=== PATIENT | male | born 1970 | race Caucasian/White ===

== ENCOUNTER 2018-05-25 00:16 | Outpatient (CLI) | payer BC, SELFPAY ==
--- NOTE | 2018-05-25 11:30 | ETT_ITS ---
*[facility]* *[facility]* [address] [place] [address] Stress Electrocardiography David protocol Date of study: 05/25/2018 *PATIENT PRESENTATION* Height: 185.4cm (73in) Blood Pressure: Weight: 118.2kg (260lb) BSA: 2.5m^2 Ordering physician: Regino West Impressions: Exertional chest tightness without ischemic EKG changes. Hypertension. Summary: 1. Stress ECG conclusions: The stress ECG is negative. 2. Stress: There is resting hypertension with a hypertensive response to stress. Stress-induced typical chest pain which resolved spontaneously. Exercise capacity is average for age. Indication: R06.02. History: Risk factors: REASON FOR TESTING: PT REPORTS SOB ON EXERTION, OCCAS. A PAIN OR TWO . THIS IS REPORTED A SQUEEZING TIGHTNESS WHEN TRYING TO TAKE A DEEP BREATH. THS HAS BEEN ONGOING FOR A YEAR OR TWO. PMH: KIDNEY STONE, HYPERTENSION, DEPRESSION FAMILY HX: MOTHER- CAD, CA WITH MANY STENTS, SISTER- COARCTATION OF AORTA, FATHER- CA SMOKING: NEVER SMOKER. EXCERCISE: STORE ADMINISTRATOR, WALKS DAILY. NO CHOLESTEROL DATA AVAILABLE, PREVIOUSLY DONE AT [facility]. Family history of coronary artery disease. ALLERGIES: PENICILLIN MEDICATIONS: PAXIL 40 MG DAILY, AMLODIPINE 5 MG DAILY. ( PT UNSURE OF ACTUAL DOSE) Protocol: David protocol. Baseline ECG: NO EKG FOR COMPARISON AVAILABLE. TODAY'S EKG- SINUS RHYTHM, HR 71. Stress protocol: + +---+ +---+ !Stage !HR !BP (mmHg) !Sat! + +---+ +---+ !Baseline supine !71 !148/98 (115) !96%! + +---+ +---+ !Baseline standing !81 !140/100 (113)!---! + +---+ +---+ !Stage I; 1.7mph, 10degrees; 3 min !107!150/90 (110) !96%! + +---+ +---+ !Stage II; 2.5mph, 12degrees; 3 min !121!165/90 (115) !---! + +---+ +---+ !Stage III; 3.4mph, 14degrees; 3 min!141!174/88 (117) !95%! + +---+ +---+ !Recovery; 1 min !136!190/90 (123) !---! + +---+ +---+ !Recovery; 3 min !104!204/96 (132) !---! + +---+ +---+ !Recovery; 6 min !94 !170/94 (119) !---! + +---+ +---+ !Recovery; 9 min !92 !140/90 (107) !---! + +---+ +---+ * Stress results: There is resting hypertension with a hypertensive response to stress. The rate-pressure product for the peak heart rate and blood pressure was 45079th Hg/min. Stress-induced typical chest pain which resolved spontaneously. Exercise capacity is average for age. Stress ECG: EXCERCISE TESTING ENDED IN 9 MINS, 34 SECS, DUE TO FATIGUE AND DYSPNEA. MAX HR WAS 152, 87% OF TARGET. HYPERTENSIVE BLOOD PRESSURE RESPONSE. METS:11.08 ECTOPY: NONE SEEN. ANGINA: PATIENT REPORTED 1/10 CHEST TIGHTNESS IN STAGE 2, 2/10 LEFT CHEST PRESSURE IN STAGE 3. BY 2 MINS OF RECOVERY, THE PRESSURE HAD DIMINISHED SLIGHTLY, AND BY 5 MINS OF RECOVERY WAS 0/10. ISCHEMIA: NO ISCHEMIC CHANGES NOTED. FUNCTIONAL CAPACITY: AVERAGE CAPACITY. The stress ECG is negative. Study data: Brittany Robertson MD supervised and was readily available during the procedure. This study was interpreted by [facility]. Study status: Routine. Consent: The risks, benefits, and alternatives to the procedure were explained to the patient and informed consent was obtained. Procedure: Initial setup. A baseline ECG was recorded. Surface ECG leads and manual cuff blood pressure measurements were monitored. Heart sounds: Normal. Lung sounds: Normal. Treadmill exercise testing was performed using the David protocol. Study completion: The patient tolerated the procedure well and was discharged from the lab. Discharge: The patient left the laboratory in stable condition. Birthdate: Patient birthdate: 1970. Sex: Gender: male. Study date: Study date: 05/25/2018. Study time: 11:30 AM. Signature Documentation: The Stress ECG portion of this study was interpreted by Brittany Robertson MD. Electronically signed by Brittany Robertson 05/25/2018 13:01
== END 2018-05-25 00:17 ==
PROVIDERS: PCP Family Medicine; Visit Provider Family Medicine
DX: R07.89 Other chest pain (principal); R06.02 Shortness of breath; I10 Essential (primary) hypertension
CPT/HCPCS: 93017

== ENCOUNTER 2018-07-26 14:55 | Outpatient (REF) | payer BC, SELFPAY ==
[2018-07-26 19:19] LABS: Anion Gap 10.3 mmol/L (3-11); BUN 12 mg/dL (7-18); CO2 25.7 mmol/L (21.0-32.0); CREATININE 0.95 mg/dL (0.70-1.30); Chloride 103 mmol/L (98-107); Glucose 105 mg/dL (70-100); Magnesium 2.1 mg/dL (1.8-2.4); Sodium 139 mmol/L (136-145); TSH (W/Ref FT4) 1.95 uIU/mL (0.358-3.74)
== END 2018-07-26 15:15 ==
LOC: NCHCN 14:55
PROVIDERS: PCP Family Medicine; Visit Provider Family Medicine
DX: H81.10 Benign paroxysmal vertigo, unspecified ear (principal); R53.83 Other fatigue; I10 Essential (primary) hypertension
CPT/HCPCS: 80048; 83735; 84443

== ENCOUNTER 2019-05-23 11:59 | Emergency (ER) | payer BC, SELFPAY ==
[2019-05-23 12:06] VITALS: BP 153/102; PULSE 79; RESP 20; TEMP 36.8; O2SAT 95
--- NOTE | 2019-05-23 12:14 | ED.GENADUL_ITS ---
Discharge Plan Disposition Patient Disposition: HOME Condition: Improving Discharge Details Chief Complaint: Orthopedic Clinical Impression: Gout attack Primary Care Provider: Regino West ED Provider: Bunny White Home Meds and New Rx's Prescriptions: New prednisone 20 mg tablet 40 mg PO DAILY 6 Days Qty: 12 RF: 0 Continued paroxetine HCl 20 MG tablet 20 mg PO DAILY RF: 0 Discharge Instructions Instructions: Gout (ED) Additional Instructions: Please follow-up with Dr West if not improving in 5 to 7 days time. Return for increasing pain or any acute concerns. Please take prednisone as prescribed. Tylenol as needed for discomfort. I apply ice to area to reduce discomfort. Medical Decision Making 48-year-old male with left great toe pain over days time, questions whether he may have injured it playing softball but it took 2 days for the pain to begin. On exam he appears to have podagra. Referred for x-ray and laboratory testing. Diagnostic studies are notable for unremarkable x-ray. His laboratories reveal normal CBC, elevated uric acid at 7.5 and elevated C-reactive protein 0.5. Consistent with acute gout, will treat with a brief burst of prednisone. Discussed with him expected course of resolution and need for follow-up if not improving. Stable and appropriate for discharge Lab Data Lab results reviewed: Yes I reviewed the patient's lab results. Laboratory Results - last 24 hr 05/23/19 05/23/19 12:31 12:31 WBC 5.46 RBC 4.59 Hgb 14.4 Hct 42.1 MCV 91.7 MCH 31.4 MCHC 34.2 RDW 13.5 Plt Count 151 MPV 8.9 Immature Gran % 0.4 Neutrophils % 56.9 Lymphocytes % 31.7 Monocytes % 8.8 Eosinophils % 1.8 Basophils % 0.4 Absolute Neutrophils 3.11 Absolute Lymphocytes 1.73 Absolute Monocytes 0.48 Absolute Eosinophils 0.10 Absolute Basophils 0.02 Sodium 141 Potassium 4.0 Chloride 106 Carbon Dioxide 23.9 Anion Gap 11.1 H BUN 12 Creatinine 1.12 Estimated GFR/1.73 m2 >= 60.00 Glucose 99 Uric Acid 7.5 H Calcium 8.7 C-Reactive Protein 0.55 H HPI General Mode of arrival: ambulatory . Date/Time Provider Initiated Documentation: 05/23/19 12:09 . Limitations to Documentation: no limitations . Information obtained by: patient . History of Present Illness 48 year old M presents to the emergency department with the chief complaint of Right foot pain, most@ great toe, described as moderate, Quality is described as dull and constant, and is localized to the left and lower extremity. Patient reports no radiation. Patient started experiencing this day(s) and it has been constant. Rest improves symptom(s), Movement worsens symptoms . Patient notes no other symptoms.; denies fever/chills. Patient did receive the following treatments prior to arrival, none Related Data Home Medications Medication Instructions Recorded Confirmed paroxetine HCl 20 mg PO DAILY 12/08/17 05/23/19 prednisone 40 mg PO DAILY 6 Days #12 tab 05/23/19 Previous Rx's Medication Instructions Recorded prednisone 40 mg PO DAILY 6 Days #12 tab 05/23/19 Allergies Allergy/AdvReac Type Severity Reaction Status Date / Time Penicillins Allergy Unverified 05/23/19 12:08 General Stated Complaint: Orthopedic UGO: 3 Review of Systems Review of Systems Question subtle injury on Monday playing softball. No other injury. No numbness or tingling. No fever chills. Sick systems reviewed and otherwise negative [facility] Social History Do you feel safe in your relationship?: Yes Exam Narrative Exam Narrative: GEN: awake, alert, oriented 3. Pleasant, well groomed, interactive. HEAD: Normocephalic, atraumatic ENT: Mucous membranes moist, oropharynx unremarkable, External ear exam unremarkable EXT: Full ROM, no edema, no rash. Left great toe erythematous, warm to the touch, tender to palpation and passive movement. Neuro: Grossly normal neurologic exam, conversant, interactive. Psych: Speech fluent, thoughts congruent, affect normal Course Vital Signs Temperature 36.8 C 05/23/19 12:06 Pulse 79 05/23/19 12:06 Respiratory Rate 20 05/23/19 12:06 Blood Pressure 153/102 H 05/23/19 12:06 Pulse Oximetry 95 05/23/19 12:06 Temperature 36.8 C 05/23/19 12:06 Temperature Source Temporal Artery Scan 05/23/19 12:06 Pulse 79 05/23/19 12:06 Respiratory Rate 20 05/23/19 12:06 Blood Pressure 153/102 H 05/23/19 12:06 Pulse Oximetry 95 05/23/19 12:06 Pain Level 9 05/23/19 12:06
[2019-05-23] MEDS: Acetaminophen 500 MG TAB 1000 MG PO (12:17)
--- NOTE | 2019-05-23 12:37 | NUR.NOTE ---
Nursing Note: pt to x-ray
[2019-05-23 12:40] LABS: Abs Immature Grans 0.02 k/cumm (0.0-0.09); Absolute Basophil Count 0.02 k/cumm (0.0-0.2); Absolute Lymphocyte Count 1.73 k/cumm (1.2-3.4); Absolute Monocyte Count 0.48 k/cumm (0.11-0.7); Absolute Neutrophil Count 3.11 k/cumm (1.2-6.7); Basophils % 0.4; Eosinophils % 1.8; HCT 42.1 % (40.0-50.0); HGB 14.4 g/dL (13.5-17.5); Immature Grans % 0.4; Lymphocytes % 31.7; Mean Corp. HGB Concentration 34.2 g/dL (32.0-36.0); Mean Corpuscular Hemoglobin 31.4 pg (27.0-33.0); Mean Corpuscular Volume 91.7 fL (80-95); Mean Platelet Volume 8.9 fL (8.0-11.0); Monocytes % 8.8; Neutrophils % 56.9; Platelet Count 151 x1000/uL (130-400); RBC 4.59 m/cumm (4.50-6.00); RBC Distribution Width 13.5 % (11.8-14.1); White Blood Cell Count 5.46 k/cumm (4.4-10.8)
--- NOTE | 2019-05-23 12:45 | DI.RAD_ITS ---
SYMPTOM/DIAGNOSIS: GREAT TOE PAIN, ? PODAGRA RIGHT GREAT TOE: Three views were obtained. There are mild degenerative changes of the IP joints of the toes. Small accessory ossicles are noted adjacent to plantar surface of the IP joint of the great toe. No other significant bony abnormality is seen.
[2019-05-23 12:55] LABS: Anion Gap 11.1 mmol/L (3-11); BUN 12 mg/dL (7-18); C-Reactive Protein 0.55 mg/dL (0.0-0.3); CO2 23.9 mmol/L (21.0-32.0); CREATININE 1.12 mg/dL (0.70-1.30); Calcium 8.7 mg/dL (8.5-10.1); Chloride 106 mmol/L (98-107); Glucose 99 mg/dL (70-100); Sodium 141 mmol/L (136-145); Uric Acid 7.5 mg/dL (3.5-7.2)
[2019-05-23 13:13] VITALS: BP 153/102; PULSE 79; RESP 20; TEMP 36.8; O2SAT 95
== END 2019-05-23 13:21 | disposition home or self-care (01) ==
PROVIDERS: Emergency Provider Emergency Medicine; PCP Family Medicine
DX: M79.674 Pain in right toe(s) (principal); M10.9 Gout, unspecified
CPT/HCPCS: 36415; 80048; 99284; 73660; 84550; 85025; 86140; 99283

== ENCOUNTER 2019-11-06 13:39 | Outpatient (REF) | payer BC, SELFPAY ==
[2019-11-06 19:25] LABS: Anion Gap 12.6 mmol/L (3-11); BUN 17 mg/dL (7-18); CO2 23.4 mmol/L (21.0-32.0); CREATININE 1.12 mg/dL (0.70-1.30); Calcium 8.8 mg/dL (8.5-10.1); Calculated LDL 109 mg/dL; Chloride 105 mmol/L (98-107); Cholesterol 182 mg/dL (<200); Glucose 93 mg/dL (74-106); HDL Cholesterol 38 mg/dL (40-60); Potassium 4.4 mmol/L (3.5-5.1); Sodium 141 mmol/L (136-145); Triglyceride 178 mg/dL (<150)
[2019-11-08 11:34] LABS: Hepatitis C Ab w Rflx HCV PCR Negative (Negative)
== END 2019-11-06 13:59 ==
LOC: NCHCN 13:39
PROVIDERS: PCP Family Medicine; Visit Provider Family Medicine
DX: R73.01 Impaired fasting glucose (principal); Z13.220 Encounter for screening for lipoid disorders; Z11.59 Encounter for screening for other viral diseases
CPT/HCPCS: 80048; 80061; 86803

== ENCOUNTER 2020-04-03 08:20 | Outpatient (CLI) | payer BC, SELFPAY ==
[2020-04-05 10:39] LABS: COVID-19 RT-PCR Result NEGATIVE (Negative)
== END 2020-04-03 08:40 ==
PROVIDERS: PCP Family Medicine; Visit Provider Physician Assistant Medical
DX: Z20.828 Contact with and (suspected) exposure to other viral communicable diseases (principal)
CPT/HCPCS: U0003

== ENCOUNTER 2020-05-15 09:22 | Outpatient (CLI) | payer BC, SELFPAY ==
[2020-05-18 17:42] LABS: SARS-CoV-2 RNA Undetected (Undetected); SARS-CoV-2 Specimen Source Nasopharynx
== END 2020-05-15 09:42 ==
PROVIDERS: PCP Family Medicine; Visit Provider Physician Assistant Medical
DX: Z11.59 Encounter for screening for other viral diseases (principal)
CPT/HCPCS: U0003

== ENCOUNTER 2022-02-11 20:06 | Outpatient (REF) | payer MEDICAID, SELFPAY ==
[2022-02-14 09:43] LABS: PSA, Diagnostic 1.3 ng/mL (<=3.5)
== END 2022-02-11 20:07 | disposition home or self-care (01) ==
LOC: LBN 20:06
PROVIDERS: PCP Family Medicine; Visit Provider Urology
DX: R31.9 Hematuria, unspecified (principal); R36.1 Hematospermia; Z80.42 Family history of malignant neoplasm of prostate
CPT/HCPCS: 84153

== ENCOUNTER 2023-01-31 01:27 | Outpatient (CLI) | payer BC, SELFPAY ==
--- NOTE | 2023-01-31 | DI.MRI_ITS ---
Exam(s) MR LUMBAR SPINE WO EXAM: MR LUMBAR SPINE WO CLINICAL HISTORY: LUMBAR RADICULOPATHY LLE,LT FOOT DROP,HYPOREFLEXIC LT KNEE JERK,M21.372,. TECHNIQUE: Multiplanar multisequence MRI of the Lumbar spine was performed. COMPARISON: CT RENAL COLIC WO CONTRAST from 12/08/2017 FINDINGS: Bones: The last intervertebral disc space is designated the L5/S1 level for the numbering purpose of this examination. The vertebral body heights are well maintained. Alignment is satisfactory. Degene rative endplate signal changes are present. There are most marked at L5-S1. Cord: The conus tip ends at the T12 level. It is of normal size and signal intensity. T12-L1: No disc herniations or bulges are present. No central spinal canal or neural foraminal stenos is. L1-2: No disc herniations or bulges are present. No central spinal canal or neural foraminal stenosis . L2-3: Degenerative changes of the facets are seen. There is a mild diffuse disc bulge. There is mil d narrowing of the neural foramen bilaterally. L3-4: There is a diffuse disc bulge and degenerative changes of the facets. There is mild narrowing of the central spinal canal. No significant neural foraminal stenosis is present. L4-5: There is a diffuse disc bulge. There are hypertrophic changes of the facets. There is mild na rrowing of the central spinal canal. There is moderate right and marked left neural foraminal stenos is. No central spinal canal or neural foraminal stenosis. L5-S1: There is disc material which appears to extend into the left neural foramen. There are degene rative changes of the facets bilaterally. No significant central spinal canal or right neural forami nal stenosis is seen. There is moderately severe left neural foraminal stenosis. Soft tissues: The visualized SI joints and sacrum are well maintained. The paraspinal soft tissues ar e unremarkable. IMPRESSION: 1. Degenerative changes at L4-L5 resulting in mild central spinal canal stenosis and moderate right a nd marked left neural foraminal stenosis. 2. There appears to be disc material which extends into the left neural foramen on L5-S1 causing mode rately severe left neural foraminal stenosis. 3. Multilevel degenerative changes in the lumbar spine. DATA REPOSITORY:
== END 2023-01-31 01:47 ==
PROVIDERS: PCP Family Medicine; Visit Provider Nurse Practitioner Family
DX: M21.372 Foot drop, left foot (principal); M48.00 Spinal stenosis, site unspecified
CPT/HCPCS: 72148

== ENCOUNTER 2024-04-03 11:46 | Outpatient (CLI) | payer BC, SELFPAY ==
[2024-04-03 11:43] LABS: Abs Immature Grans 0.01 10^3/uL (0.0-0.06); Absolute Basophil Count 0.04 10^3/uL (0.0-0.2); Absolute Eosinophil Count 0.19 10^3/uL (0.0-0.7); Absolute Monocyte Count 0.41 10^3/uL (0.1-0.8); Absolute Neutrophil Count 2.12 10^3/uL (1.2-6.7); Basophils % 0.9 %; Eosinophils % 4.3 %; HCT 38.6 % (40.0-50.0); HGB 13.7 g/dL (13.5-17.5); Immature Grans % 0.2 %; MCHC 35.5 % (32.0-36.0); MCV 93 fL (80-95); Monocytes % 9.2 %; Neutrophils % 47.4 %; Platelet Count 101 10^3/uL (130-400); RBC 4.15 10^6/uL (4.36-5.78); RDW 13.3 % (11.8-14.1); RDW-SD 45.5 fL; WBC 4.47 10^3/uL (4.4-10.8)
[2024-04-03 12:43] LABS: Hemoglobin A1C 5.4 % (<5.7)
[2024-04-03 13:12] LABS: ALT 55 U/L (16-63); AST 43 U/L (15-37); Albumin 3.8 g/dL (3.4-5.0); Alkaline Phosphatase 96 U/L (46-116); Anion Gap 10.8 mmol/L (3-11); BUN 11 mg/dL (7-18); Bilirubin, Total 1.8 mg/dL (0.2-1.0); CO2 24.2 mmol/L (21.0-32.0); CREATININE 1.1 mg/dL (0.70-1.30); Calculated LDL 51 mg/dL (<100); Chloride 106 mmol/L (98-107); Cholesterol 124 mg/dL (<200); Estimated GFR 80.77 (mL/min/1.73m2); Glucose 110 mg/dL (74-106); HDL Cholesterol 64 mg/dL (40-60); Potassium 3.8 mmol/L (3.5-5.1); Sodium 141 mmol/L (136-145); TSH (W/Ref FT4) 2.34 uIU/mL (0.36-3.74); Total Protein 7.5 g/dL (6.4-8.2); Triglyceride 47 mg/dL (<150); Vitamin B12 488 pg/mL (193-986); Vitamin D 25 Total 25.5 ng/mL (30-100)
[2024-04-03 22:27] LABS: PSA, Screening 1.5 ng/mL (<=3.5)
== END 2024-04-03 11:47 | disposition home or self-care (01) ==
LOC: LBO 11:47
PROVIDERS: PCP Family Medicine; Visit Provider Nurse Practitioner Family
DX: I10 Essential (primary) hypertension (principal); Z00.00 Encounter for general adult medical examination without abnormal findings; E78.5 Hyperlipidemia, unspecified; D51.3 Other dietary vitamin B12 deficiency anemia; E55.9 Vitamin D deficiency, unspecified; Z12.5 Encounter for screening for malignant neoplasm of prostate
CPT/HCPCS: 36415; 80053; 80061; 82306; 84153; 82607; 83036; 84443; 85025

== ENCOUNTER 2024-05-07 10:48 | Day surgery (SDC) | payer BC, SELFPAY ==
--- NOTE | 2024-05-06 21:27 | PDOC.DSDIS_ITS ---
Date of service: 05/07/24 Time of Service: 15:00 Discharge Plan Disposition Patient Disposition: Home Condition: Good Discharge Details Reason For Visit: colon scope Attending Provider: Stephanie Mccollum Primary Care Provider: Claire Lauren Home Meds and New Rx's Prescriptions: Continued ketorolac 10 mg tablet 10 mg PO TID PRN (Reason: pain) Qty: 15 0RF lisinopril 20 mg tablet 20 mg PO DAILY triamcinolone acetonide 0.05 % ointment 1 applic topical BID Rx Instructions: abdomen and leg Discontinued bisacodyl [Dulcolax (bisacodyl)] 5 mg tablet,delayed release (DR/EC) 5 mg PO ONCE Qty: 4 0RF Rx Instructions: Take per colonoscopy instructions provided by ordering providers office polyethylene glycol 3350 17 gram/dose powder 17 g PO ONCE Qty: 238 0RF Rx Instructions: Take per colonoscopy instructions provided by ordering providers office Discharge Instructions Additional Instructions: DSU Colonoscopy Post- Op Instructions Instructions for Everyone who is given Anesthesia: For your safety, please do the following for the next twenty-four (24) hours: *Do Not operate a motor vehicle (car, truck, motorcycle, etc.) *Do Not drink alcoholic beverages or use any recreational drugs for the first 24 hours or while taking pain medications. The medications in your body may have a reaction that can be dangerous. *Do Not make any important decisions or sign any important papers. Findings: Rectal fissure- see handout Internal Diverticula- ses handout Multiple polyps Follow up: My office will send you a letter in 2 to 3 weeks time with the results of the biopsy and when we want you to repeat the colonoscopy, most likely in 3-5yrs time. -I also ordered an ultrasound of the abdomen. The hospital will call you to schedule the test. 1. No lifting over 20 pounds or strenuous activity for the first 24 hours after your procedure. After 24 hours there are no restrictions on your activity but you may feel fatigued for a few days. 2. After you arrive home you may have a light meal and return to your normal diet as you can tolerate it without feeling sick to your stomach. 3. You may have a bloated, gaseous feeling in your belly (abdomen) after a colonoscopy. Passing gas and belching will help. Walking or lying down on your left side with your knees flexed may relieve the discomfort. Call the office at [phone] (Office) or [phone] (Hospital) right away if you notice any of the following: a.Vomiting of blood or ?coffee ground stools?. b.Rectal bleeding 1Tbsp, blood clots or continuous bleeding. c.Severe belly (abdominal) pain. d.A hard distended belly (abdomen) and an inability to pass gas. 4. Please don?t expect to have a normal BM (bowel movement) for 2-3 days after your procedure. 5. If there are questions regarding the findings of your procedure, please contact your doctor 6. If you are unable to contact your doctor with a problem, contact the hospital at [phone]. 7. Continue all your regular medications unless directed otherwise. I understand the above instructions and have no questions. Signature of Patient or Adult Escort Name of Responsible Adult Escort Signature of Nurse Date/Time Stand Alone Forms: Anesthesia Discharge Inst., Colonoscopy Post Instructions, Roman Mclain (DSU) Activity:: see above Diet:: seeabove Discharge Orders Discharge Orders: Discharge Order (Routine); Ordered 05/07/24 Ordered By: Stephanie Mccollum DS: Diagnosis Discharge Diagnosis (1) Diarrhea: Status: Acute Asessment and Plan: The patient is seen and examined after their colonoscopy.? The patient has been able to pass gas.? They are not having abdominal pain.? They have been able to tolerate liquids and a snack.? They do not have any nausea or vomiting.? They are not having any chest pain or shortness of breath.??? They are not having any rectal bleeding. Their vital signs have been stable-see nursing notes. We discussed findings during their colonoscopy, and any biopsies that were d one/polyps that were removed. The patient will be sent a letter with any biopsy results, and when to repeat the colonoscopy.-see discharge instructions. Patient was given explicit instructions to follow-up regarding colonoscopy-refer to discharge instructions.? We reviewed resumption of medications. Patient verbalized understanding and discharged in stable and satisfactory condition- See nursing notes. (2) Marijuana use: (3) Posttraumatic stress disorder: (4) Alcohol use: (5) Essential hypertension: (6) Diverticula of colon: Status: Acute (7) Adenomatous polyps: Status: Acute (8) Chronic rectal fissure: Status: Acute (9) Internal hemorrhoids with complication: Status: Acute
--- NOTE | 2024-05-06 21:28 | W.COLOREPORT ---
Date of service: 05/07/24 Time of Service: 15:00 Colonoscopy Report Date of procedure: 05/07/24 Pre-op diagnosis general: diarrhea Post-op diagnosis procedure note: other (Internal hemorrhoids/anal fissure/diverticula/colon polyps) Surgeon: Stephanie Mccollum Anesthesia Type: General:No Airway Pathology: other Complications: None Disposition: same day Prep: Miralax/Dulcolax Retraction Time: 17 Procedure Description: After informed consent was obtained, explaining risks of the procedure, including but not limits to: bleeding, infections, complications of anesthesia, perforations (which may require antibiotics and /or surgery and stay in the hospital), and abdominal pain/cramping. The patient was taken to the procedure room and placed in a left decubitous position. Monitors were applied and a time out was done. The patients name, date of , procedure, allergies to medications and metal in their body was reviewed. The patient was then sedated. Once sedated and comfortable a rectal exam was done. External exam was normal. Internal exam revealed a normal sphincter tone and no palpable masses. The prostate []. The previously lubricated Olympus scope was then introduced (see RN notes for scope number) and retrofelexed. Grade 1 internal hemorrhoids x 1 quadrant were identified. He also has a anal fissure in the 6 o'clock position. The scope was then advanced to the cecum without difficulty. The colon is somewhat tortuous. The TI and appendiceal orifice were identified. The scope was then slowly retracted over 17 minutes back into the rectum. Polyps: A flat, .5cm polyp was found on the ileocecal valve.. This was removed with a cold biting forceps. A flat, .5cm polyp was found at 80 cm x2. A flat, .5cm polyp was found at 70cm. This was removed with a cold biting forceps. A flat, .5cm polyp was found at 50cm. This was removed with a cold biting forceps. All of the specimen was retrieved. There is no bleeding noted from the polypectomy site. All of the specimen was retrieved. This will be sent to pathology. There is no bleeding noted from the polypectomy site. . Diverticula: He has a few small scattered diverticula in the sigmoid colon. There is no signs of active bleeding or infection. Biopsies were taken in the cecum 30 cm in the rectum. All specimens are retrieved and no bleeding is noted.. The mucosa is pink and healthy w/ a normal vascular pattern. The scope was removed, and the patient was woken up and taken back to Same day surgery in stable condition. The patient tolerated the procedure well and there were no immediate complications. Follow up: The patient should follow up in 3-5 years, pathology pending, unless they develop changes in bowel habits or other new gastrointestinal complaints. [place] Bowel Prep [place] Bowel Prep Right Colon: 2 Left Colon: 3 Transverse Colon: 2 Total Score: 7
[2024-05-07 11:15] VITALS: BP 136/78; PULSE 75; RESP 16; TEMP 36.2; O2SAT 96
[2024-05-07 11:29] VITALS: BP 136/78; PULSE 75; RESP 16; TEMP 36.2; O2SAT 96
[2024-05-07] MEDS: Lactated Ringers 1,000 ML 80 ML IV (11:41)
--- NOTE | 2024-05-07 12:54 | W.ANESPRE ---
General Info Date of Service Date Performed: 05/07/24 Height: 6 ft 1 in Weight: 117.48 kg Body Mass Index (BMI): 34.2 Surgical Procedure: Operation Date: 05/07/24 12:50 Proposed Procedure Side Surgeon p Colonoscopy Stephanie Mccollum, DO Actual Procedure Side Surgeon p Colonoscopy Not Applicable Stephanie Mccollum, DO Pre-Op Diagnosis Post-Op Diagnosis Diarrhea Meds Allergies and Home Medications Allergies Allergy/AdvReac Type Severity Reaction Status Date / Time Penicillins AdvReac Mild Unknown Unverified 05/07/24 11:11 Home Medication ?Medication ?Instructions ?Recorded ketorolac 10 mg tablet 10 mg PO TID PRN pain #15 tabs 02/11/22 lisinopril 20 mg tablet 20 mg PO DAILY 04/12/24 triamcinolone acetonide 0.05 % 1 applic topical BID 04/12/24 topical ointment Current Visit Medications: Current Medications Generic Name Dose Route Start Last Admin Trade Name Freq PRN Reason Stop Dose Admin Hyoscyamine Sulfate 0.125 mg 05/07/24 01:16 Hyoscyamine 0.125 Mg Sl/Oral/Chew SL 06/06/24 01:15 DIRECTED PRN Ringer's Solution 1,000 mls @ 80 mls/hr 05/07/24 06:00 05/07/24 11:41 IV 06/05/24 23:59 80 mls/hr INFUSION TORI Administration IV Miscellaneous Supplies 1 each 05/07/24 06:00 Iv Access IV 06/05/24 23:59 DIRECTED TORI Ondansetron HCl 4 mg 05/07/24 01:16 Ondansetron 4 Mg/2 Ml Vial IVP 06/06/24 01:15 Q4H PRN PRN Nausea / Vomiting Sodium Chloride 0 ml 05/07/24 06:00 Normal Saline Flush 10 Ml Syr IV 06/05/24 23:59 PRN PRN Sodium Chloride 0 ml 05/07/24 06:00 Normal Saline 10 Ml Vial IJ 06/05/24 23:59 DIRECTED PRN Sterile Water 0 ml 05/07/24 06:00 Water,Injection,Sterile 10 Ml Vial IJ 06/05/24 23:59 DIRECTED PRN PFSH Active Problems Active Problems: Problem Status Onset Code Diarrhea Acute R19.7 Medical History Medical History Essential hypertension Posttraumatic stress disorder Chronic sciatica Alcohol use Marijuana use Maculopapular rash Surgical History Surgical History H/O laminectomy Tobacco Smoking/Tobacco Use Status: Never Alcohol Alcohol Intake: current Alcohol intake frequency: a few times a week Alcohol type: hard liquor Details: Reports 4-5 dane and cokes on nights, not working. Has cut back to this luis Vital Signs and Lab Results Vital Signs Most Recent Vital Signs in EMR: Most Recent Vital Signs Temp Pulse Resp BP Pulse Ox 36.2 C L 75 16 136/78 96 05/07/24 11:29 05/07/24 11:29 05/07/24 11:29 05/07/24 11:29 05/07/24 11:29 Lab Results Blood Type / Crossmatch: No Data to Display Complete Blood Count: No Data to Display Complete Metabolic Panel: No Data to Display Liver Function Panel: No Data to Display Coagulation Panel: No Data to Display Cardiac Panel: No Data to Display Arterial Blood Gas: No Data to Display Venous Blood Gas: No Data to Display Pancreas Panel: No Data to Display Thyroid Panel: No Data to Display Infectious Disease: No Data to Display Blood Cultures: No Data to Display Toxicology Panel: No Data to Display Anesthesia Assessment and Plan Anesthesia History Personal History: No History of Anesthesia Complications Family History: No Family History of Anesthesia Complications Exercise Tolerance Exercise Tolerance: Metabolic Equivalents>4 Pertinent Negatives Pertinent Negatives: No Symptoms of GERD Cardiac & Pulmonary Exam Cardiac Exam: Normal S1/S2 Heart Sounds Pulmonary Exam: Clear Bilateral Breath Sounds Implantable Cardiac Device Does patient have a Pacemaker or an ICD?: No Airway Exam Known Difficult Airway: No Mallampati Class: 2 Mouth Opening: Normal (> 3cm) Thyromental Distance: Greater than 3 cm Neck Range of Motion: Full ROM Neck Circumference: Normal Teeth Condition: Normal Dentition ASA Classification ASA Score: ASA 2 Emergency Case?: No NPO Status NPO Status: NPO Clears >2 hours, Solids >8 hours Anesthesia Plan Resuscitation Status: Full Code Anesthesia Technique: General Anesthesia Airway Planned: Natural Airway Monitors Used: Standard Monitors
[2024-05-07 12:55] VITALS: BMI 34.2
--- NOTE | 2024-05-07 13:40 | BOWEL_PTH ---
PATIENT: Bola Nur LOC: [facility] U#:[id number] AGE/SX: 53/M ROOM: RE05/07/[address]: Stephanie Mccollum : 1970 BED: DIS: 05/07/2024 SPEC #: [id number] RECD: 05/07/24 17:58 STATUS: KEYANNA RE #: [id number] CHEMA: 05/07/24 13:[address]: Stephanie Mccollum DEPT: Surgical Specimen RECD BY: Lori Cervantes ENTERED: 05/07/24 18:01 SP TYPE: Bowel OTHR DR: Claire Lauren Tissues: 1 - BIOPSY BOWEL 2 - BIOPSY BOWEL 3 - BIOPSY BOWEL 4 - BIOPSY BOWEL 5 - BIOPSY BOWEL 6 - BIOPSY BOWEL 7 - BIOPSY BOWEL 8 - BIOPSY BOWEL Procedures: GROSS AND MICRO LEVEL 4 Comments: [id number]
[2024-05-07 14:28] VITALS: BP 97/62; PULSE 69; RESP 16; TEMP 36.3; O2SAT 95
--- NOTE | 2024-05-07 14:42 | W.ANESPOSTOP ---
Postoperative Evaluation Date, Time and Location Date Performed: 05/07/24 Time Performed: 14:42 Patient Location: Day Surgery Unit Vital Signs Most Recent Imported Vital Signs: Most Recent Vital Signs Temp Pulse Resp BP Pulse Ox 36.3 C L 69 16 97/62 L 95 05/07/24 14:28 05/07/24 14:28 05/07/24 14:28 05/07/24 14:28 05/07/24 14:28 Pain Score Most Recent Pain Score: Most Recent Pain Score Pain Level 0 05/07/24 14:28 Assessment Mental Status: Awake (Alert & Oriented to Patient Baseline) Airway and Respiratory Function: Patent airway with normal (patient baseline) respiratory exam Cardiovascular Function: Hemodynamically Stable Hydration Status: Adequately Hydrated Nausea & Vomiting: No Nausea or Vomiting Pain: Pt. Denies Any Pain Peripheral Nerve Block: Patient did not receive a nerve block
[2024-05-07 14:51] VITALS: BP 99/64; PULSE 65; RESP 14; TEMP 36.6; O2SAT 95
== END 2024-05-07 16:06 | disposition home or self-care (01) ==
LOC: SUR 10:48
PROVIDERS: PCP Nurse Practitioner Family; Visit Provider Surgery
PROC: 0DJD8ZZ Inspection of Lower Intestinal Tract, Via Natural or Artificial Opening Endoscopic (ICD-10-PCS; CPT 45378; principal; 2024-05-07 12:45)
DX: R19.7 Diarrhea, unspecified (principal); I10 Essential (primary) hypertension; K57.30 Diverticulosis of large intestine without perforation or abscess without bleeding; K64.8 Other hemorrhoids; K60.2 Anal fissure, unspecified; K63.89 Other specified diseases of intestine; D12.4 Benign neoplasm of descending colon; D12.5 Benign neoplasm of sigmoid colon
CPT/HCPCS: 45380; 88305; J2371; J2704

== ENCOUNTER 2024-12-03 02:25 | Outpatient (CLI) | payer BC, SELFPAY ==
--- NOTE | 2024-12-03 06:15 | DI.MRI_ITS ---
Exam(s) MR LUMBAR SPINE WO EXAM: MR LUMBAR SPINE WO CLINICAL HISTORY: recurrent radiculopathy, hx of laminectomy,m47.27,[id number]. TECHNIQUE: Multiplanar multisequence MRI of the Lumbar spine was performed. COMPARISON: CT RENAL COLIC WO CONTRAST from 12/08/2017 MR MR LUMBAR SPINE WO from 01/31/2023 FINDINGS: Bones: The last intervertebral disc space is designated the L5/S1 level for the numbering purpose of this examination. The vertebral body heights are well maintained. There is very mild anterolisthesi s of L4 on L5. There are degenerative endplate signal changes in the lumbar spine particularly at L2- 3 and L5-S1. Since the prior examination the patient has undergone a left-sided L4 hemilaminectomy. Cord: The conus tip ends at the L1 level. It is of normal size and signal intensity. T12-L1: No disc herniations or bulges are present. No central spinal canal or neural foraminal stenos is. L1-2: No disc herniations or bulges are present. No central spinal canal or neural foraminal stenosis . L2-3: There is a mild diffuse disc bulge. No significant central spinal canal stenosis is seen. The re is mild narrowing of the neural foramen bilaterally. L3-4: There is a mild diffuse disc bulge. Degenerative changes of the facets are seen. There is zain y mild narrowing of the central spinal canal. No significant neural foraminal stenosis is present. L4-5: There is a diffuse disc bulge. There are degenerative changes of the facets. There is mild-to -moderate central spinal canal stenosis. There is extension of disc material into the left neural fo ramen causing moderately severe left neural foraminal stenosis. There is mild right neural foraminal stenosis. L5-S1: There is an eccentric diffuse disc bulge extending into the left neural foramen. No significa nt central spinal canal stenosis is seen. There may be an impression upon the left S1 nerve root.The re is moderate left neural foraminal stenosis. Soft tissues: The visualized SI joints and sacrum are well maintained. The paraspinal soft tissues ar e unremarkable. IMPRESSION: 1. Interval L4 laminectomy. There is interval mild grade 1 anterolisthesis of L4 on L5. 2. Diffuse disc bulge at L4-L5 causing moderate to the mild central spinal canal stenosis and bilater al neural foraminal stenosis, left greater than right. 3. Eccentric disc bulge at L5-S1 extending into the left neural foramen causing moderate left neural foraminal stenosis. DATA REPOSITORY:
== END 2024-12-03 02:45 ==
LOC: DI 02:25
PROVIDERS: PCP Nurse Practitioner Family; Visit Provider Nurse Practitioner Family
DX: M47.27 Other spondylosis with radiculopathy, lumbosacral region (principal); Z98.890 Other specified postprocedural states
CPT/HCPCS: 72148

== ENCOUNTER 2025-01-15 12:10 | Outpatient (CLI) | payer BC, SELFPAY ==
[2025-01-15 12:01] LABS: Abs Immature Grans 0.02 10^3/uL (0.0-0.06); Absolute Basophil Count 0.04 10^3/uL (0.0-0.2); Absolute Lymphocyte Count 1.22 10^3/uL (1.2-3.4); Absolute Monocyte Count 0.51 10^3/uL (0.1-0.8); Absolute Neutrophil Count 2.64 10^3/uL (1.2-6.7); Basophils % 0.8 %; Eosinophils % 6.3 %; HCT 39.2 % (40.0-50.0); HGB 13.5 g/dL (13.5-17.5); Immature Grans % 0.4 %; Lymphocytes % 25.8 %; MCH 31.7 pg (27.0-33.0); MCHC 34.4 % (32.0-36.0); MCV 92 fL (80-95); MPV 9.7 fL (8.0-11.0); Monocytes % 10.8 %; Neutrophils % 55.9 %; Platelet Count 103 10^3/uL (130-400); RBC 4.26 10^6/uL (4.36-5.78); RDW 13.7 % (11.8-14.1); RDW-SD 46.5 fL; WBC 4.73 10^3/uL (4.4-10.8)
[2025-01-15 12:07] LABS: ALT 36 U/L (16-63); AST 32 U/L (15-37); Albumin 3.9 g/dL (3.4-5.0); Alkaline Phosphatase 114 U/L (46-116); Anion Gap 10.2 mmol/L (3-11); BUN 17 mg/dL (7-18); CO2 24.8 mmol/L (21.0-32.0); CREATININE 1.1 mg/dL (0.70-1.30); Calcium 9.2 mg/dL (8.5-10.1); Chloride 107 mmol/L (98-107); Estimated GFR 80.27 (mL/min/1.73m2); Glucose 116 mg/dL (74-106); Potassium 3.7 mmol/L (3.5-5.1); Sodium 142 mmol/L (136-145); Total Protein 7.5 g/dL (6.4-8.2)
[2025-01-15 18:54] LABS: PSA, Screening 1.3 ng/mL (<=3.5)
[2025-01-16 10:02] LABS: HBs Antibody, Quant <3.1 mIU/mL (See Note); Hep B Surface Ab Negative (See Note); Hepatitis B Core Antibody Negative (Negative); Hepatitis B Surface Antigen Negative (Negative)
[2025-01-16 10:04] LABS: HIV-1/2 Ag & Ab Screen Negative (Negative)
[2025-01-16 10:38] LABS: Hepatitis C Ab w Rflx HCV PCR Negative (Negative)
== END 2025-01-15 12:11 | disposition home or self-care (01) ==
LOC: LBO 12:10
PROVIDERS: PCP Nurse Practitioner Family; Visit Provider Nurse Practitioner Family
DX: K76.0 Fatty (change of) liver, not elsewhere classified (principal); Z11.59 Encounter for screening for other viral diseases; Z11.4 Encounter for screening for human immunodeficiency virus [HIV]; Z12.5 Encounter for screening for malignant neoplasm of prostate
CPT/HCPCS: 36415; 80053; 84153; 86704; 86706; 86803; 87340; 87389; 85025

== ENCOUNTER 2025-06-02 11:14 | Outpatient (CLI) | payer BC, SELFPAY ==
--- NOTE | 2025-06-02 11:00 | RT.EKG_ITS ---
APPROVED REPORT Exam: Resting ECG Reason for Exam: pre-op Patient Location: O HR:63 bpm ECG Measurements Heart Rate 63 AXIS DC 190 P 34 QRSd 100 QRS 32 QT 413 T 37 QTc 423 Conclusion Sinus rhythm...normal P axis, V-rate 50- 99 Normal Electrocardiogram
--- NOTE | 2025-06-02 11:45 | RT.EKG_ITS ---
APPROVED REPORT Exam: Resting ECG Reason for Exam: pre op Patient Location: O HR:64 bpm ECG Measurements Heart Rate 64 AXIS ND 193 P 39 QRSd 96 QRS 28 QT 415 T 29 QTc 428 Conclusion Sinus rhythm...normal P axis, V-rate 50- 99 Normal Electrocardiogram
== END 2025-06-02 11:15 | disposition home or self-care (01) ==
PROVIDERS: PCP Nurse Practitioner Family; Visit Provider Nurse Practitioner Family
DX: R06.02 Shortness of breath (principal); Z01.818 Encounter for other preprocedural examination
CPT/HCPCS: 93010

== ENCOUNTER 2025-06-10 09:57 | Outpatient (CLI) | payer BC, SELFPAY ==
[2025-06-10 10:07] LABS: Abs Immature Grans 0.01 10^3/uL (0.0-0.06); HCT 41.4 % (40.0-50.0); HGB 14.3 g/dL (13.5-17.5); Immature Grans % 0.2 %; MCH 31.2 pg (27.0-33.0); MCHC 34.5 % (32.0-36.0); MCV 90 fL (80-95); MPV 9.9 fL (8.0-11.0); Platelet Count 114 10^3/uL (130-400); RBC 4.58 10^6/uL (4.36-5.78); RDW 13.5 % (11.8-14.1); RDW-SD 44.4 fL; WBC 4.93 10^3/uL (4.4-10.8)
[2025-06-10 10:42] LABS: ALT 43 U/L (16-63); AST 31 U/L (15-37); Albumin 4.3 g/dL (3.4-5.0); Alkaline Phosphatase 97 U/L (46-116); Anion Gap 10.4 mmol/L (3-11); BUN 16 mg/dL (7-18); Bilirubin, Total 1.6 mg/dL (0.2-1.0); CO2 23.6 mmol/L (21.0-32.0); Calcium 9.3 mg/dL (8.5-10.1); Chloride 108 mmol/L (98-107); Estimated GFR 90.00 (mL/min/1.73m2); Glucose 121 mg/dL (74-106); Potassium 3.9 mmol/L (3.5-5.1); Sodium 142 mmol/L (136-145); Total Protein 7.7 g/dL (6.4-8.2)
== END 2025-06-10 09:58 | disposition home or self-care (01) ==
LOC: LBO 09:57
PROVIDERS: PCP Nurse Practitioner Family; Visit Provider Nurse Practitioner Family
DX: Z01.818 Encounter for other preprocedural examination (principal)
CPT/HCPCS: 36415; 80053; 85025

== ENCOUNTER 2025-06-10 12:03 | Outpatient (CLI) | payer BC, SELFPAY ==
--- NOTE | 2025-06-10 09:39 | DI.RAD_ITS ---
Exam(s) XR CHEST 2V PA LATERAL EXAM: XR CHEST 2V PA LATERAL CLINICAL HISTORY: Z01.818 Encounter for other preprocedural examination, preop exam TECHNIQUE: 2D digital imaging was performed of the chest. Three images were obtained. PA and lateral views were obtained. COMPARISON: No exams were available for comparison FINDINGS: MEDIASTINUM: Normal. HEART: Normal. PULMONARY VASCULATURE: Normal. LUNGS: Clear. PLEURAL SPACE: No pleural effusion or pneumothorax. BONE:Within normal limits for the patient's age. OTHER FINDINGS:Normal. IMPRESSION: No acute pulmonary findings. DATA REPOSITORY: RADIATION DOSE DELIVERED:
== END 2025-06-10 12:23 ==
LOC: DI 12:04
PROVIDERS: PCP Nurse Practitioner Family; Visit Provider Nurse Practitioner Family
DX: Z01.818 Encounter for other preprocedural examination (principal)
CPT/HCPCS: 71046